=== PATIENT | male | born 1995 | race Caucasian/White ===

== ENCOUNTER 2020-11-13 15:22 | Inpatient (IN) | payer OTHER ==
[~2020-11-13] VITALS: Ht 175.3 cm; Wt 81.6 kg
[2020-11-13 16:20] VITALS: BP 136/65
[2020-11-13] MEDS ORDERED: MELATONIN 5 MG TABLET PO PRN (16:30)
[2020-11-13] MEDS ORDERED: OxyCODONE HCL 5 MG IR TABLET PO PRN (16:30)
[2020-11-13] MEDS ORDERED: METHOCARBAMOL 500 MG TABLET PO PRN (16:30)
[2020-11-13] MEDS ORDERED: ACETAMINOPHEN 325 MG TABLET PO PRN (16:30)
[2020-11-13] MEDS ORDERED: IBUPROFEN 800 MG TABLET PO PRN (16:30)
[2020-11-13] MEDS ORDERED: TraMADol HCL 50 MG TABLET PO PRN (16:30)
[2020-11-13] MEDS: FAMOTIDINE 20 MG TABLET PO SCH (20:43)
[2020-11-13] MEDS: GABAPENTIN 300 MG CAPSULE PO SCH (20:43)
[2020-11-13] MEDS: TraMADol HCL 50 MG TABLET PO PRN (20:43)
[2020-11-13] MEDS: ETHYL ALCOHOL 62% ANTISEPTIC NASAL INHALANT 0.6 ML AMPUL NASAL SCH (20:48)
[2020-11-13] MEDS: ENOXAPARIN SODIUM 30 MG/0.3 ML PF SYRINGE SQ SCH (20:48)
[2020-11-13] MEDS: DOCUSATE SODIUM 100 MG CAPSULE PO SCH (20:52)
[2020-11-14 06:23] VITALS: BP 94/61
[2020-11-14] MEDS: TraMADol HCL 50 MG TABLET PO PRN ×3 (06:23→19:56)
[2020-11-14 07:17] LABS: BASOPHILS % (AUTO) 0.6 % (0.0-2.0); EOSINOPHILS % (AUTO) 2.6 % (1.0-6.0); HEMATOCRIT 34.7 % (41-53); HEMOGLOBIN 11.7 g/dL (13.5-17.5); LYMPHOCYTES # (AUTO) 1.4 K/uL (1.0-4.8); LYMPHOCYTES % (AUTO) 17.5 % (22.0-44.0); MEAN CORPUSCULAR HEMOGLOBIN 30.8 pg (26.0-34.0); MEAN CORPUSCULAR HGB CONC 33.6 G/dL (31.0-37.0); MEAN CORPUSCULAR VOLUME 92 fL (80-100); MONOCYTES # (AUTO) 0.5 K/uL (0.1-1.0); MONOCYTES % (AUTO) 5.9 % (2.0-9.0); NEUTROPHILS # (AUTO) 5.9 K/uL (1.8-7.7); NEUTROPHILS % (AUTO) 73.4 % (40.0-70.0); PLATELET COUNT (AUTO) 438 K/uL (150-450); RED BLOOD CELL COUNT(AUTO) 3.79 MIL/uL (4.50-5.90); RED CELL DISTRIBUTION WIDTH 13.4 % (11.5-14.5)
[2020-11-14 07:23] VITALS: BP 115/63
[2020-11-14 07:37] LABS: ALANINE AMINOTRANSFERASE 69 U/L (12-78); ALBUMIN 3.5 g/dL (3.4-5.0); ALKALINE PHOSPHATASE 72 U/L (46-116); ANION GAP 7 mmol/L (8-16); ASPARTATE AMINOTRANSFERASE 59 U/L (15-37); BILIRUBIN,TOTAL 0.4 mg/dL (0.1-1.0); CALCIUM, TOTAL 10.1 mg/dL (8.8-10.5); CARBON DIOXIDE 33 mmol/L (22-29); CHLORIDE 102 mmol/L (98-107); CREATININE 0.79 mg/dL (0.60-1.30); GLOMERULAR FILTR. RATE CALC > 60 mL/min (>60); GLUCOSE,RANDOM 97 mg/dL (70-110); POTASSIUM 4.6 mmol/L (3.5-5.1); SODIUM SERUM 142 mmol/L (136-145); TOTAL PROTEIN, SERUM 7.8 g/dL (6.4-8.2); UREA NITROGEN, BLOOD 15 mg/dL (7-18)
[2020-11-14] MEDS: ETHYL ALCOHOL 62% ANTISEPTIC NASAL INHALANT 0.6 ML AMPUL NASAL SCH ×2 (08:20→19:56)
[2020-11-14] MEDS: FAMOTIDINE 20 MG TABLET PO SCH ×2 (08:21→19:56)
[2020-11-14] MEDS: GABAPENTIN 300 MG CAPSULE PO SCH ×3 (08:21→19:56)
[2020-11-14] MEDS: DOCUSATE SODIUM 100 MG CAPSULE PO SCH ×2 (08:21→19:47)
[2020-11-14] MEDS: ENOXAPARIN SODIUM 30 MG/0.3 ML PF SYRINGE SQ SCH ×2 (08:21→19:56)
[2020-11-14] MEDS: POLYETHYLENE GLYCOL 3350 17 GM PACKET PO SCH (08:21)
[2020-11-14 15:38] VITALS: BP 126/69
[2020-11-15] MEDS: TraMADol HCL 50 MG TABLET PO PRN ×4 (06:20→20:45)
[2020-11-15 07:55] VITALS: BP 120/63
[2020-11-15] MEDS: POLYETHYLENE GLYCOL 3350 17 GM PACKET PO SCH (07:58)
[2020-11-15] MEDS: FAMOTIDINE 20 MG TABLET PO SCH ×2 (07:58→20:03)
[2020-11-15] MEDS: ENOXAPARIN SODIUM 30 MG/0.3 ML PF SYRINGE SQ SCH ×2 (07:58→20:03)
[2020-11-15] MEDS: DOCUSATE SODIUM 100 MG CAPSULE PO SCH ×2 (07:58→20:03)
[2020-11-15] MEDS: ETHYL ALCOHOL 62% ANTISEPTIC NASAL INHALANT 0.6 ML AMPUL NASAL SCH ×2 (07:58→20:02)
[2020-11-15] MEDS: GABAPENTIN 300 MG CAPSULE PO SCH ×3 (07:58→20:03)
[2020-11-15 16:00] VITALS: BP 125/56
[2020-11-15] MEDS: MAGNESIUM HYDROXIDE SUSPENSION 30 ML UDCUP PO PRN (18:09)
[2020-11-15] MEDS: SENNA 187 MG TABLET PO SCH (20:03)
[2020-11-16] VITALS: BP 113/54
[2020-11-16] MEDS: TraMADol HCL 50 MG TABLET PO PRN ×5 (02:31→20:37)
[2020-11-16] MEDS ORDERED: DOCU-350 PO (04:41)
[2020-11-16] MEDS ORDERED: GABA-1181 PO (04:41)
[2020-11-16] MEDS ORDERED: FAMO20 PO (04:41)
[2020-11-16 08:00] VITALS: BP 105/68
[2020-11-16] MEDS: GABAPENTIN 300 MG CAPSULE PO SCH ×3 (08:04→20:28)
[2020-11-16] MEDS: DOCUSATE SODIUM 250 MG CAPSULE PO SCH ×2 (08:04→20:28)
[2020-11-16] MEDS: FAMOTIDINE 20 MG TABLET PO SCH ×2 (08:04→20:28)
[2020-11-16] MEDS: ENOXAPARIN SODIUM 30 MG/0.3 ML PF SYRINGE SQ SCH ×2 (08:04→20:29)
[2020-11-16] MEDS: ETHYL ALCOHOL 62% ANTISEPTIC NASAL INHALANT 0.6 ML AMPUL NASAL SCH ×2 (08:04→20:28)
[2020-11-16] MEDS: POLYETHYLENE GLYCOL 3350 17 GM PACKET PO SCH (08:04)
[2020-11-16] MEDS: MAGNESIUM HYDROXIDE SUSPENSION 30 ML UDCUP PO PRN (10:29)
[2020-11-16 16:10] VITALS: BP 115/54
[2020-11-16] MEDS: SENNA 187 MG TABLET PO SCH (20:28)
[2020-11-17 00:38] VITALS: BP 103/53
[2020-11-17] MEDS: TraMADol HCL 50 MG TABLET PO PRN ×6 (00:38→21:11)
[2020-11-17 08:03] VITALS: BP 105/63
[2020-11-17] MEDS: ETHYL ALCOHOL 62% ANTISEPTIC NASAL INHALANT 0.6 ML AMPUL NASAL SCH ×2 (09:12→21:11)
[2020-11-17] MEDS: FAMOTIDINE 20 MG TABLET PO SCH ×2 (09:13→21:11)
[2020-11-17] MEDS: GABAPENTIN 300 MG CAPSULE PO SCH ×3 (09:13→21:11)
[2020-11-17] MEDS: ENOXAPARIN SODIUM 30 MG/0.3 ML PF SYRINGE SQ SCH ×2 (09:13→21:12)
[2020-11-17] MEDS: POLYETHYLENE GLYCOL 3350 17 GM PACKET PO SCH (09:13)
[2020-11-17] MEDS: DOCUSATE SODIUM 250 MG CAPSULE PO SCH ×2 (09:13→21:11)
[2020-11-17] MEDS: THIAMINE 100 MG TABLET PO SCH (09:14)
[2020-11-17] MEDS: FOLIC ACID 1 MG TABLET PO SCH (09:15)
[2020-11-17] MEDS: ASCORBIC ACID 500 MG TABLET PO SCH (09:20)
[2020-11-17 15:51] VITALS: BP 128/59
[2020-11-17] MEDS: SENNA 187 MG TABLET PO SCH (21:11)
[2020-11-18 01:30] VITALS: BP 101/50
[2020-11-18] MEDS: TraMADol HCL 50 MG TABLET PO PRN ×6 (01:30→23:44)
[2020-11-18 08:00] VITALS: BP 119/63
[2020-11-18] MEDS: DOCUSATE SODIUM 250 MG CAPSULE PO SCH ×2 (09:13→20:33)
[2020-11-18] MEDS: POLYETHYLENE GLYCOL 3350 17 GM PACKET PO SCH (09:13)
[2020-11-18] MEDS: ENOXAPARIN SODIUM 30 MG/0.3 ML PF SYRINGE SQ SCH ×2 (09:13→20:34)
[2020-11-18] MEDS: FAMOTIDINE 20 MG TABLET PO SCH ×2 (09:14→20:33)
[2020-11-18] MEDS: ASCORBIC ACID 500 MG TABLET PO SCH (09:14)
[2020-11-18] MEDS: THIAMINE 100 MG TABLET PO SCH (09:14)
[2020-11-18] MEDS: GABAPENTIN 300 MG CAPSULE PO SCH ×3 (09:14→20:33)
[2020-11-18] MEDS: ETHYL ALCOHOL 62% ANTISEPTIC NASAL INHALANT 0.6 ML AMPUL NASAL SCH ×2 (09:14→20:33)
[2020-11-18] MEDS: FOLIC ACID 1 MG TABLET PO SCH (09:14)
[2020-11-18 15:30] VITALS: BP 117/62
[2020-11-18] MEDS: SENNA 187 MG TABLET PO SCH (20:33)
[2020-11-18 23:44] VITALS: BP 111/53
[2020-11-18 23:56] VITALS: BP 111/53
[2020-11-19] MEDS: TraMADol HCL 50 MG TABLET PO PRN ×5 (03:45→22:57)
[2020-11-19] MEDS: ENOXAPARIN SODIUM 30 MG/0.3 ML PF SYRINGE SQ SCH ×2 (07:54→20:26)
[2020-11-19] MEDS: POLYETHYLENE GLYCOL 3350 17 GM PACKET PO SCH (07:54)
[2020-11-19 07:55] VITALS: BP 109/58
[2020-11-19] MEDS: ASCORBIC ACID 500 MG TABLET PO SCH (07:55)
[2020-11-19] MEDS: GABAPENTIN 300 MG CAPSULE PO SCH ×3 (07:55→20:26)
[2020-11-19] MEDS: DOCUSATE SODIUM 250 MG CAPSULE PO SCH ×2 (07:55→20:25)
[2020-11-19] MEDS: FOLIC ACID 1 MG TABLET PO SCH (07:55)
[2020-11-19] MEDS: THIAMINE 100 MG TABLET PO SCH (07:55)
[2020-11-19] MEDS: FAMOTIDINE 20 MG TABLET PO SCH ×2 (07:55→20:26)
[2020-11-19] MEDS: ETHYL ALCOHOL 62% ANTISEPTIC NASAL INHALANT 0.6 ML AMPUL NASAL SCH ×2 (07:55→20:29)
[2020-11-19 16:30] VITALS: BP 104/55
[2020-11-19] MEDS: SENNA 187 MG TABLET PO SCH (20:26)
[2020-11-19 22:57] VITALS: BP 108/56
[2020-11-20] MEDS: TraMADol HCL 50 MG TABLET PO PRN ×4 (03:01→22:18)
[2020-11-20] MEDS ORDERED: FOLI0.4T6 PO (03:37)
[2020-11-20] MEDS ORDERED: THIA100T80 PO (03:37)
[2020-11-20] MEDS ORDERED: ASCO500 PO (03:37)
[2020-11-20] MEDS ORDERED: TRAM50TA4 PO (06:50)
[2020-11-20] MEDS: POLYETHYLENE GLYCOL 3350 17 GM PACKET PO SCH (07:34)
[2020-11-20] MEDS: THIAMINE 100 MG TABLET PO SCH (07:35)
[2020-11-20] MEDS: ETHYL ALCOHOL 62% ANTISEPTIC NASAL INHALANT 0.6 ML AMPUL NASAL SCH ×2 (07:35→20:24)
[2020-11-20] MEDS: DOCUSATE SODIUM 250 MG CAPSULE PO SCH ×2 (07:35→20:24)
[2020-11-20] MEDS: GABAPENTIN 300 MG CAPSULE PO SCH ×3 (07:35→20:24)
[2020-11-20] MEDS: ENOXAPARIN SODIUM 30 MG/0.3 ML PF SYRINGE SQ SCH ×2 (07:35→20:24)
[2020-11-20] MEDS: FOLIC ACID 1 MG TABLET PO SCH (07:35)
[2020-11-20] MEDS: ASCORBIC ACID 500 MG TABLET PO SCH (07:35)
[2020-11-20] MEDS: FAMOTIDINE 20 MG TABLET PO SCH ×2 (07:35→20:24)
[2020-11-20 07:36] VITALS: BP 113/52
[2020-11-20 16:00] VITALS: BP 91/75
[2020-11-20] MEDS ORDERED: POLY17PO47 PO (18:59)
[2020-11-20] MEDS: SENNA 187 MG TABLET PO SCH (20:24)
[2020-11-21 02:16] VITALS: BP 104/55
[2020-11-21] MEDS: TraMADol HCL 50 MG TABLET PO PRN ×3 (02:16→10:52)
[2020-11-21 08:42] VITALS: BP 117/63
[2020-11-21 08:45] VITALS: BP 117/63
[2020-11-21] MEDS: ETHYL ALCOHOL 62% ANTISEPTIC NASAL INHALANT 0.6 ML AMPUL NASAL SCH (09:07)
[2020-11-21] MEDS: ENOXAPARIN SODIUM 30 MG/0.3 ML PF SYRINGE SQ SCH (09:07)
[2020-11-21] MEDS: POLYETHYLENE GLYCOL 3350 17 GM PACKET PO SCH (09:07)
[2020-11-21] MEDS: THIAMINE 100 MG TABLET PO SCH (09:07)
[2020-11-21] MEDS: DOCUSATE SODIUM 250 MG CAPSULE PO SCH (09:08)
[2020-11-21] MEDS: FAMOTIDINE 20 MG TABLET PO SCH (09:08)
[2020-11-21] MEDS: ASCORBIC ACID 500 MG TABLET PO SCH (09:08)
[2020-11-21] MEDS: GABAPENTIN 300 MG CAPSULE PO SCH (09:08)
[2020-11-21] MEDS: FOLIC ACID 1 MG TABLET PO SCH (09:08)
[2020-11-21] MEDS ORDERED: ENOX40DI9 SQ (11:28)
== END 2020-11-21 11:40 | disposition home or self-care (01) | DRG 964 ==
LOC: 2WR 15:50
PROVIDERS: ADMIT Physical Medicine & Rehabilitation; ATTEND Physical Medicine & Rehabilitation
DX: S34.109A Unspecified injury to unspecified level of lumbar spinal cord, initial encounter (principal); G82.20 Paraplegia, unspecified; T79.6XXA Traumatic ischemia of muscle, initial encounter; S32.018A Other fracture of first lumbar vertebra, initial encounter for closed fracture; Y99.8 Other external cause status; M54.9 Dorsalgia, unspecified; R26.89 Other abnormalities of gait and mobility; Z98.890 Other specified postprocedural states
CPT/HCPCS: 80053; 85025; 87081; 93970; 97110; 97112; 97116; 97163; 97165; 97530; 97535; 99366; J1650